=== PATIENT | female | born 1975 | race Caucasian/White ===

== ENCOUNTER 2022-10-05 21:35 | Emergency (ER) | payer OTHER, SELFPAY ==
--- NOTE | ~2022-10-05 | CT_ITS ---
CT of the Abdomen and Pelvis: Indication: Abdominal pain Technique: 2.5 mm axial scans were obtained through the abdomen and pelvis following intravenous adm inistration of 100 cc of Omnipaque 350. Dose reduction technique was used on this scan by utilizing a utomated exposure control and iterative reconstruction technique. The dose-length product (DLP) was 1 151.14 mGy-cm. Findings: Scans through the lung bases demonstrate 3 mm and 4 mm left lower lobe pulmonary nodules ( axial images 19, 32).. The liver, spleen, pancreas, gallbladder, adrenals and kidneys are within normal limits. No evidence of aortic aneurysm. No lymphadenopathy. No bowel obstruction or bowel wall thickening. There is no evidence to suggest acute appendicitis. Images through the pelvis were performed. Urinary bladder is unremarkable. There is a large pelvic ma ss extending into the lower abdomen, with large multiseptated cystic component as well as scattered s olid components, measuring up to approximately 20.0 x 12.6 x 22.0 cm in size. Small amount of pelvic ascites noted. Impression: 20.0 x 12.6 x 22.0 cm multiseptated mixed cystic and solid mass arising from the pelvis. This is most consistent with ovarian malignancy. Given size and midline position, it is difficult to ascertain pr ecisely which ovary the lesion arises from. Gynecological surgical consultation recommended. Small amount of pelvic ascites. Subcentimeter left basilar pulmonary nodules, indeterminate. According to Fleischner Society criteria , for a low-risk patient, no further follow-up required. For a high-risk patient, 12 month follow-up CT should be considered. Reviewed, dictated and finalized at location M. Impression: 20.0 x 12.6 x 22.0 cm multiseptated mixed cystic and solid mass arising from th e pelvis. This is most consistent with ovarian malignancy. Given size and midli ne position, it is difficult to ascertain precisely which ovary the lesion jose es from. Gynecological surgical consultation recommended. Small amount of pelvic ascites. Subcentimeter left basilar pulmonary nodules, indeterminate. According to Fleis chner Society criteria, for a low-risk patient, no further follow-up required. For a high-risk patient, 12 month follow-up CT should be considered.
[2022-10-05 21:38] VITALS: BP 155/95; PULSE 120; RESP 18; TEMP 36.9; O2SAT 100
[2022-10-05 23:41] LABS: Basophils Absolute Auto 0.1 K/mm3 (0.0-0.1); Basophils Percent Auto 0.7 % (0.2-1.2); Eosinophils Absolute Auto 0.2 K/mm3 (0-0.3); Eosinophils Percent Auto 1.3 % (0-4.4); Hematocrit 40.6 % (37.0-47.0); Hemoglobin 13.4 g/dL (12.0-15.0); Immature Granulocyte Absolute 0.08 K/mm3 (0.00-0.031); Immature Granulocyte Percent A 0.7 % (0-0.5); Lymphocytes Absolute Auto 3.44 K/mm3 (0.9-3.2); Lymphocytes Percent Auto 30.6 % (18.3-44.2); Mean Corpuscular Hemoglobin 29.5 pg (26-34); Mean Corpuscular Volume 89.2 fl (80-100); Mean Platelet Volume 9.8 fl (7.4-10.4); Monocytes Absolute Auto 0.9 K/mm3 (0.1-0.6); Monocytes Percent Auto 8.4 % (2.6-8.5); Neutrophils Absolute Auto 6.5 K/mm3 (1.3-6.7); Neutrophils Percent Auto 58.3 % (45.5-73.1); Platelet Count Result 385 k/mm3 (150-375); Red Blood Count 4.55 M/mm3 (4.2-5.4); Red Cell Distribution Width 13.7 % (11.5-14.5); White Blood Count 11.2 K/mm3 (4.5-10.0)
[2022-10-05 23:45] LABS: Appearance Urine Cloudy (Clear); Bacteria Urine Rare /hpf; Bilirubin Urine Negative (Negative); Blood Urine Negative (Negative); Color Urine Yellow (Yellow); Glucose Urine UA Negative (Negative); Ketones Urine Trace mg/dL (Negative); Leukocyte Esterase Ur Negative LEU/UL (Negative); Nitrate Urine Negative (Negative); Non Pathogenic Casts 0-2; Protein Urine Negative (Negative); Specific Grav Ur 1.022 (1.001-1.035); Squamous Epithelial Cell Urine Moderate /hpf (Few); pH Urine 5.5 (5.0-9.0)
[2022-10-05 23:47] LABS: Add Urine Microscopic? YES
[2022-10-05 23:50] LABS: Alanine Aminotransferase 20 U/L (6-35); Alkaline Phosphatase 93 U/L (38-126); Anion Gap 6 mmol/L (8-16); Aspartate Amino Transferase 25 U/L (14-36); Bilirubin,Total 0.5 mg/dL (0.2-1.3); Blood Urea Nitrogen 9 mg/dL (7-17); Calcium 9.5 mg/dL (8.4-10.2); Carbon Dioxide 29 mmol/L (22-30); Chloride 103 mmol/L (98-107); Estimated CRCL calculation 83 ml/min; Estimated Glomerular Filt Rate > 60; Glucose 106 mg/dL (65-110); Lipase 194 U/L (23-300); Potassium 3.6 mmol/L (3.4-5.0); Sodium 138 mmol/L (137-145)
[2022-10-06] VITALS (12 sets, daily range): BP systolic 135–153; BP diastolic 95–107; PULSE 104; RESP 20–76; TEMP 36; O2SAT 97–100
--- NOTE | 2022-10-06 05:30 | ED.GENADULT ---
HPI - General Adult General Chief complaint: Abdominal Pain Stated complaint: abd pain Time Seen by Provider: 10/06/22 03:47 History of Present Illness HPI narrative: This is a 47-year-old female presenting ED with a chief complaint of abdominal pain. Has been going on for 4 days. Started in the right lower quadrant/ right adnexal area and is now progressing to the center of her abdomen. It is stabbing, worse at night, and comes and goes. She has never experienced pain like this before there are no exacerbating relieving factors. Her last bowel movement was this morning and was normal in nature without blood. She notes she has had decreased appetite and significant abdominal distention over the last 4 days. She is still passing gas. She denies fever, chills, chest pain, difficulty breathing, urinary symptoms, vaginal discharge irritation. she has had a tubal ligation in the past. Related Data Home Medications Medication Instructions Recorded Confirmed amitriptyline 10 mg tablet mg 10/05/22 10/05/22 omeprazole 40 mg capsule,delayed mg 10/05/22 release phentermine 37.5 mg tablet mg 10/05/22 topiramate 25 mg tablet mg 10/05/22 Allergies Allergy/AdvReac Type Severity Reaction Status Date / Time codeine Allergy Unknown Nausea and Verified 10/05/22 21:40 Vomiting PMFSH Past Medical History Medical History Chronic GERD High cholesterol Family History Family History Father Family history of diabetes mellitus in first degree relative Family history of heart disease in male family member before age 55 Mother Family history of malignant neoplasm of cervix Sibling Colon polyp Other Asthma Diabetes mellitus Family history of cardiovascular disease Family history of malignant neoplasm Social History Social History Smoking status: Heavy tobacco smoker Alcohol intake: current Exam Narrative: APPEARANCE: No apparent distress. Head: atraumatic. EYES: EOMI, NOSE: Atraumatic NECK: Trachea midline RESPIRATORY: No increased rate of breathing clear to auscultation CARDIOVASCULAR: RRR, ABDOMINAL: Abdomen is distended with maximal tenderness in the right lower quadrant. Voluntary guarding. No rebound MUSCULOSKELETAl: No obvious deformities NEURO: Alert. Moving 4/4 extremities SKIN:: Warm, dry. Normal color PSYCHIATRIC: Normal affect Course Vital Signs Vital signs: Vital Signs Temperature 98.5 F 10/05/22 21:38 Pulse Rate 120 H 10/05/22 21:38 Respiratory Rate 18 10/05/22 21:38 Blood Pressure 155/95 H 10/05/22 21:38 Pulse Oximetry 100 10/05/22 21:38 Temperature 96.8 F L 10/06/22 01:30 Pulse Rate 104 H 10/06/22 01:30 Respiratory Rate 20 10/06/22 01:30 Blood Pressure 142/105 H 10/06/22 01:30 Pulse Oximetry 97 10/06/22 01:30 Medical Decision Making MDM Narrative Medical decision making narrative: -Presentation: 47-year-old female presenting with right lower quadrant pain and significant abdominal distention x4 days. 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 Lives alone -External Chart Review: none -Hx from independent Sources: father at [facility] -Discussion of Management/Consuletants: SATISH Zimmer -Independent interpretation of studies: white blood cell count mildly elevated. Metabolic panel within normal limits. Urine was negative for infection. CT abdomen pelvis showed a large complex cystic mass measuring 23 x 21 x 12 cm consistent with ovarian cancer. Dx tests considered but not ordered: -Procedures: -Interventions: 0.5 mg Dilaudid, Zofran, 1000 mg Tylenol
[2022-10-06] MEDS: ONDANSETRON HCL ODT 4 MG TABLET PO (05:41)
[2022-10-06] MEDS: HYDROmorphone HCL INJ (*CRX) 1 MG/ML SYR 0.5 MG IV PUSH (05:42)
== END 2022-10-06 06:52 | disposition home or self-care (01) ==
PROVIDERS: Emergency Provider Emergency Medicine; PCP Physician Assistant
DX: D39.10 Neoplasm of uncertain behavior of unspecified ovary (principal); K21.9 Gastro-esophageal reflux disease without esophagitis; E78.5 Hyperlipidemia, unspecified
CPT/HCPCS: 36415; 74177; 80053; 81001; 81025; 83690; 85025; 87086; 96365; 96375; 99284; A9270; J0131; J1170; Q9967